=== PATIENT | male | born 1940 | race Caucasian/White ===

== ENCOUNTER → 2017-06-11 08:33 | Outpatient (CLI) | payer MEDICARE, SELFPAY ==
[2017-06-11 09:07] LABS: AST(SGOT) 13 U/L (15-37); Alanine Aminotransfer ALT/SGPT 28 U/L (16-61); Albumin, Serum 3.9 g/dL (3.2-5.0); Alkaline Phosphatase 46 U/L (45-117); Bilirubin, Direct 0.17 mg/dL (0.00-0.30); Cholesterol 170 mg/dL (200); High Density Lipoprotein 64 mg/dL; Protein, Total 7.9 g/dL (6.4-8.2); Triglycerides 73 mg/dL; Very Low Density Lipoprotein 15 mg/dL (5-40)
== END ==
PROVIDERS: Physician Assistant Medical; Family Provider Family Medicine; PCP Family Medicine; Visit Provider Internal Medicine Cardiovascular Disease
DX: E78.5 Hyperlipidemia, unspecified (principal); I10 Essential (primary) hypertension; I25.10 Atherosclerotic heart disease of native coronary artery without angina pectoris; Z79.899 Other long term (current) drug therapy
CPT/HCPCS: 36415; 80061; 80076

== ENCOUNTER → 2018-07-21 10:22 | Outpatient (CLI) | payer MEDICARE, SELFPAY ==
[2017-06-11 09:37] VITALS: BMI 27.0
[2018-07-21 11:14] LABS: AST(SGOT) 14 U/L (15-37); Alanine Aminotransfer ALT/SGPT 25 U/L (16-61); Albumin, Serum 3.9 g/dL (3.2-5.0); Alkaline Phosphatase 52 U/L (45-117); Bilirubin, Direct 0.15 mg/dL (0.00-0.30); Cholesterol 158 mg/dL (200); High Density Lipoprotein 64 mg/dL; Protein, Total 7.9 g/dL (6.4-8.2); Triglycerides 73 mg/dL; Very Low Density Lipoprotein 15 mg/dL (5-40)
== END ==
PROVIDERS: Family Provider Family Medicine; PCP Family Medicine; Referring Provider Internal Medicine Cardiovascular Disease; Visit Provider Internal Medicine Cardiovascular Disease
DX: I10 Essential (primary) hypertension (principal); E78.5 Hyperlipidemia, unspecified; Z79.899 Other long term (current) drug therapy
CPT/HCPCS: 36415; 80061; 80076

== ENCOUNTER 2018-10-07 10:37 | Emergency (ER) | payer MEDICARE, SELFPAY ==
[2018-07-23 10:15] VITALS: BMI 26.7
[2018-10-07 10:38] VITALS: BP 134/62; PULSE 67; RESP 18; TEMP 36.6; O2SAT 98; BMI 26.4
--- NOTE | 2018-10-07 11:08 | ED.VIS.GEN ---
History of Present Illness Chief Complaint: Laceration Informant: Patient Onset: Today Current Severity: Mild Narrative: The patient presents with a laceration to the mid forehead he indicates he was working trying to get an object on his pickup truck when there was movement of this object and it caused him to to jerk and he was struck in the head, he had no LOC he has no change in vision no numbness weeks paresthesias no other complaints he does have a history of using Plavix for cardiovascular reasons his general health is been good he indicates he feels fine except for the laceration his tetanus status is up-to-date Past Medical History - Allergies and Home Meds Allergies/Adverse Reactions: Allergies atorvastatin [From Lipitor] Adverse Reaction (Verified 10/07/18 10:41) myalgias simvastatin Adverse Reaction (Verified 10/07/18 10:41) myalgias Primary Care Physician: Reid Blake MD [Primary Care Provider] - Past Medical History: - - Cardiovascular disorder see above Smoking Status: Never smoker Review of Systems General: Reports: - - His only complaint is a vertical laceration very superficial well approximated to the mid forearm forehead no neurologic complaints no headache no numbness weeks paresthesias no neck pain. Denies: Chills, Fever, Sweats Eyes: Denies: Visual changes - bilaterally, Diplopia ENT: Denies: Rhinorrhea, Sore throat Cardiovascular: Denies: Chest pain, Palpitations Respiratory: Denies: Dyspnea, Cough, Dyspnea on exertion Gastrointestinal: Denies: Abdominal pain, Nausea, Vomiting, Diarrhea, Melena, Hematochezia Genitourinary: Denies: Dysuria, Hematuria, Frequency Musculoskeletal: Denies: Back pain, Extremity Pain Skin: Denies: Rash, Wounds Neurological: Denies: Headache, Weakness, Numbness Physical Exam Vital Signs/Narrative: Vital Signs Temp Pulse Resp BP Pulse Ox 10/07/18 10:38 97.8 F 67 18 134/62 H 98 General: Well nourished, Well developed, No Acute Distress Head: Normocephalic, Atraumatic, - - He has about a 3 cm Giovana very linear very midline well approximated laceration to the mid forehead his pupils were equal reactive the neck mouth ears eyes cranial nerve exam neurologic exam general medical exam are all unremarkable NIH is 0 Eyes: Perrl, EOMI ENT: Moist mucous membranes, No rhinorrhea Neck: Supple, Nontender Cardiovascular: Regular rate, Regular rhythm, No murmurs Respiratory: No distress, CTA bilaterally, Chest nontender Abdomen: Soft, Nontender, Nondistended, Normal bowel sounds Back: Nontender, Normal Inspection Extremities: Nontender, No edema Skin: Normal color, No rash Neurological: Alert, Oriented x3, Cranial nerves II-XII grossly intact, Normal Strength, Normal Sensation Psychological: Normal affect, Normal Mood Diagnostic/Tx/Re-eval - Medical Decision Making All the above with the patient we discussed CT scan he declined that he states he feels fine he does not have a headache he has no neurologic complaints or issues is been over an hour since this occurred, we did sterilely prepped the area we discussed wound closure management options he agreed with glue we used a medical glue to close the wound with good results he was instructed on wound care and follow-up with his physicians also follow head injury instruction sheet Home stable Final impression 3 cm vertical forehead laceration closed with medical glue ED Disposition - Plan for ED Patient: Diagnosis: Forehead laceration Instructions: LACERATION, Face (Skin Glue), HEAD INJURY, No Wake-Up (Adult) Referrals: Reid Blake MD [Primary Care Provider] -
== END 2018-10-07 11:13 | disposition home or self-care (01) ==
PROVIDERS: Emergency Provider Emergency Medicine; Family Provider Family Medicine; PCP Family Medicine
DX: S01.81XA Laceration without foreign body of other part of head, initial encounter (principal); W22.8XXA Striking against or struck by other objects, initial encounter; Y93.9 Activity, unspecified; Y92.9 Unspecified place or not applicable; Y99.9 Unspecified external cause status; Z79.02 Long term (current) use of antithrombotics/antiplatelets; Z79.82 Long term (current) use of aspirin; Z79.899 Other long term (current) drug therapy
CPT/HCPCS: 12013; 99282

== ENCOUNTER → 2018-12-21 16:18 | Outpatient (CLI) | payer MEDICARE, SELFPAY ==
--- NOTE | 2018-12-21 16:32 | RAD_ITS ---
STUDY: X-RAY - RIGHT SHOULDER REASON FOR EXAM: Male, 78 years old. Pain TECHNIQUE: 3 view(s) of the shoulder. COMPARISON: None. FINDINGS: No acute fracture, dislocation or osseous destruction. Moderate arthrosis is noted at the right glenohumeral joint and AC joint. No significant soft tissue swelling. The visualized lungs are clear. IMPRESSION: No acute osseous abnormality is identified. Electronically Signed: Lyle Matos, at 17:52 EST Tel , Service support , RAD/Shoulder min 2 Views
[2018-12-21 17:16] LABS: Absolute Lymphocyte Count 1.98 X10^3/uL (0.83-4.51); Absolute Neutrophil Count 4.5 X10^3/uL (2.0-7.7); Basophil# 0.03 X10^3/uL; Basophil% 0.4 % (0-1); Eosinophil# 0.23 X10^3/uL; Eosinophils% 3.2 % (0-5); Hematocrit 43.1 % (40-54); Hemoglobin 14.2 g/dL (13.0-16.5); Lymphocyte # 1.98 X10^3/ul (4.0); Lymphocyte % 27.4 % (19-41); Mean Corp Hgb Conc 32.9 g/dL (32-36); Mean Corpuscular Hgb 31.3 pg (27.0-32.0); Mean Corpuscular Volume 94.9 fL (80-94); Mean Platelet Vol. 10.3 fl (6.2-12.0); Monocyte# 0.47 X10^3/uL; Monocyte% 6.5 % (0-10); NRBC Flagged by Analyzer 0 % (0-5); Neutrophil % 62.2 % (47-70); Platelet Count 228 K/mm3 (150-450); RBC Distribution Width CV 12.5 % (11.6-14.6); RBC Distribution Width SD 43.7 fl (35.1-43.9); Red Blood Count 4.54 M/mm3 (4.6-6.2); White Blood Count 7.2 K/mm3 (4.4-11.0)
[2018-12-21 17:54] LABS: AST(SGOT) 21 U/L (15-37); Alanine Aminotransfer ALT/SGPT 33 U/L (16-61); Albumin, Serum 3.8 g/dL (3.2-5.0); Alkaline Phosphatase 46 U/L (45-117); Anion Gap 10 (5-15); BUN 20 mg/dL (7-18); BUN/Creat Ratio 19.4 RATIO (10-20); Calcium,Total 8.8 mg/dL (8.5-10.1); Chloride 103 mmol/L (98-107); Cholesterol 170 mg/dL (200); Creatinine, Serum 1.03 mg/dL (0.70-1.30); EST Glomerular Filtration Rate 75 mL/min (>60); Est Glom Filt Rate - Afr Amer 90 mL/min (>60); Globulin 3.8 g/dL (2.2-4.2); Glucose 218 mg/dL (74-106); High Density Lipoprotein 61 mg/dL; Potassium 4.1 mmol/L (3.5-5.1); Protein, Total 7.6 g/dL (6.4-8.2); Sodium Level 138 mmol/L (136-145); Thyroid Stim Hormone (TSH) 0.88 uIU/mL (0.358-3.74); Triglycerides 212 mg/dL; Very Low Density Lipoprotein 42 mg/dL (5-40)
== END ==
PROVIDERS: Family Provider Family Medicine Geriatric Medicine; PCP Family Medicine Geriatric Medicine; Referring Provider Family Medicine Geriatric Medicine; Visit Provider Family Medicine Geriatric Medicine
DX: I10 Essential (primary) hypertension (principal); E78.5 Hyperlipidemia, unspecified; M25.519 Pain in unspecified shoulder
CPT/HCPCS: 36415; 73030; 80053; 80061; 84443; 85025

== ENCOUNTER → 2019-07-25 08:18 | Outpatient (CLI) | payer MEDICARE, SELFPAY ==
[2019-07-25 09:46] LABS: AST(SGOT) 16 U/L (15-37); Alanine Aminotransfer ALT/SGPT 27 U/L (16-61); Albumin, Serum 3.7 g/dL (3.2-5.0); Alkaline Phosphatase 49 U/L (45-117); Cholesterol 167 mg/dL (200); Globulin 3.7 g/dL (2.2-4.2); High Density Lipoprotein 57 mg/dL; Protein, Total 7.4 g/dL (6.4-8.2); Triglycerides 99 mg/dL; Very Low Density Lipoprotein 20 mg/dL (5-40)
== END ==
PROVIDERS: PCP Family Medicine Geriatric Medicine; Referring Provider Internal Medicine Cardiovascular Disease; Visit Provider Internal Medicine Cardiovascular Disease
DX: E78.5 Hyperlipidemia, unspecified (principal)
CPT/HCPCS: 36415; 80061; 80076

== ENCOUNTER → 2019-12-27 11:46 | Outpatient (CLI) | payer MEDICARE, SELFPAY ==
[2019-07-26 09:28] VITALS: BMI 26.0
[2019-12-27 12:54] LABS: Vitamin D,25 Hydroxy 23.4 ng/mL
[2019-12-27 13:03] LABS: AST(SGOT) 16 U/L (15-37); Alanine Aminotransfer ALT/SGPT 32 U/L (16-61); Albumin, Serum 3.8 g/dL (3.2-5.0); Alkaline Phosphatase 55 U/L (45-117); Anion Gap 7 (5-15); BUN 26 mg/dL (7-18); BUN/Creat Ratio 23.4 RATIO (10-20); Calcium,Total 9.1 mg/dL (8.5-10.1); Chloride 100 mmol/L (98-107); Cholesterol 178 mg/dL (200); Creatinine, Serum 1.11 mg/dL (0.70-1.30); EST Glomerular Filtration Rate 68 mL/min (>60); Est Glom Filt Rate - Afr Amer 83 mL/min (>60); Globulin 3.9 g/dL (2.2-4.2); Glucose 252 mg/dL (74-106); High Density Lipoprotein 63 mg/dL; Potassium 4.2 mmol/L (3.5-5.1); Protein, Total 7.7 g/dL (6.4-8.2); Sodium Level 135 mmol/L (136-145); Thyroid Stim Hormone (TSH) 0.78 uIU/mL (0.358-3.74); Triglycerides 130 mg/dL; Very Low Density Lipoprotein 26 mg/dL (5-40)
[2019-12-27 13:54] LABS: Absolute Lymphocyte Count 1.88 X10^3/uL (0.83-4.51); Absolute Neutrophil Count 4.2 X10^3/uL (2.0-7.7); Basophil# 0.02 X10^3/uL; Basophil% 0.3 % (0-1); Eosinophil# 0.13 X10^3/uL; Hematocrit 45.6 % (40-54); Hemoglobin 14.9 g/dL (13.0-16.5); Lymphocyte # 1.88 X10^3/ul (4.0); Lymphocyte % 28.3 % (19-41); Mean Corp Hgb Conc 32.7 g/dL (32-36); Mean Corpuscular Hgb 31.1 pg (27.0-32.0); Mean Corpuscular Volume 95.2 fL (80-94); Mean Platelet Vol. 10.6 fl (6.2-12.0); Monocyte# 0.41 X10^3/uL; Monocyte% 6.2 % (0-10); NRBC Flagged by Analyzer 0 % (0-5); Neutrophil # 4.18 X10^3/uL (2.7-7.7); Neutrophil % 62.9 % (47-70); Platelet Count 244 K/mm3 (150-450); RBC Distribution Width CV 12.5 % (11.6-14.6); RBC Distribution Width SD 44.5 fl (35.1-43.9); Red Blood Count 4.79 M/mm3 (4.6-6.2); White Blood Count 6.6 K/mm3 (4.4-11.0)
[2019-12-27 15:18] LABS: Hemoglobin A1c 9.8 % (3.8-5.6)
== END ==
PROVIDERS: PCP Family Medicine Geriatric Medicine; Visit Provider Family Medicine Geriatric Medicine
DX: E55.9 Vitamin D deficiency, unspecified (principal); E78.5 Hyperlipidemia, unspecified; I10 Essential (primary) hypertension; E11.9 Type 2 diabetes mellitus without complications
CPT/HCPCS: 36415; 80053; 80061; 82306; 83036; 84443; 85025

== ENCOUNTER → 2020-07-25 08:49 | Outpatient (CLI) | payer MEDICARE, SELFPAY ==
[2019-07-26 09:28] VITALS: BMI 26.0
[2020-07-25 10:07] LABS: AST(SGOT) 17 U/L (15-37); Alanine Aminotransfer ALT/SGPT 26 U/L (16-61); Albumin, Serum 3.7 g/dL (3.2-5.0); Alkaline Phosphatase 54 U/L (45-117); Bilirubin, Direct 0.16 mg/dL (0.00-0.30); Cholesterol 214 mg/dL (200); Globulin 3.9 g/dL (2.2-4.2); High Density Lipoprotein 65 mg/dL; Protein, Total 7.6 g/dL (6.4-8.2); Triglycerides 92 mg/dL; Very Low Density Lipoprotein 18 mg/dL (5-40)
== END ==
PROVIDERS: Referring Provider Internal Medicine Cardiovascular Disease; Visit Provider Internal Medicine Cardiovascular Disease
DX: E78.5 Hyperlipidemia, unspecified (principal); E78.00 Pure hypercholesterolemia, unspecified
CPT/HCPCS: 36415; 80061; 80076

== ENCOUNTER → 2021-01-11 08:57 | Outpatient (CLI) | payer MEDICARE, SELFPAY ==
[2021-01-11 10:32] LABS: AST(SGOT) 17 U/L (15-37); Alanine Aminotransfer ALT/SGPT 25 U/L (16-61); Albumin, Serum 3.6 g/dL (3.2-5.0); Alkaline Phosphatase 54 U/L (45-117); Bilirubin, Direct 0.15 mg/dL (0.00-0.30); Cholesterol 215 mg/dL (200); Globulin 4.1 g/dL (2.2-4.2); High Density Lipoprotein 65 mg/dL; Protein, Total 7.7 g/dL (6.4-8.2); Triglycerides 85 mg/dL; Very Low Density Lipoprotein 17 mg/dL (5-40)
== END ==
PROVIDERS: Referring Provider Internal Medicine Cardiovascular Disease; Visit Provider Internal Medicine Cardiovascular Disease
DX: E78.00 Pure hypercholesterolemia, unspecified (principal)
CPT/HCPCS: 36415; 80061; 80076

== ENCOUNTER → 2021-06-18 | Outpatient (CLI) | payer MEDICARE, SELFPAY ==
--- NOTE | 2021-06-18 13:15 | RAD_ITS ---
EXAM: XR CERVICAL SPINE, 2 OR 3 VIEWS CLINICAL INDICATION: neck injury with worsening pain TECHNIQUE: Frontal and lateral views of the cervical spine. This report was created using [email or web address] report generation technology. COMPARISON: None. FINDINGS: VERTEBRAE: No acute or healing fracture or malalignment. Nuchal ligamentous ossification measuring 1.6 cm is located at the C6 level. No spondylolisthesis. Preservation of the normal cervical lordosis. No significant facet arthropathy. DISC SPACES: Multilevel spine degenerative changes which are worse at the lower levels of the cervical spine. SOFT TISSUES: Soft tissues are normal. No prevertebral soft tissue widening. LUNG APICES: Clear. RAD/Cerv Spine 2 or 3 Views IMPRESSION: Degenerative changes of the spine without acute or healing fracture or malalignment. Electronically Signed: Brandon Thornton MD at 21:10 EDT ,
== END | disposition home or self-care (01) ==
LOC: MTRAD 13:15
PROVIDERS: PCP Registered Nurse; Referring Provider Registered Nurse; Visit Provider Registered Nurse
DX: M54.2 Cervicalgia (principal)
CPT/HCPCS: 72040

== ENCOUNTER 2021-08-07 15:00 | Outpatient (RCR) | payer MEDICARE, SELFPAY ==
--- NOTE | 2021-06-24 16:10 | HP.PTEVAL_ITS ---
Patient's Visit Information CELI NOBLE is a 81 year old M referred to Physical Therapy by ARISTEO Perez with a diagnosis of ACUTE NECK PAIN. Date of Evaluation: 06/24/21 Physical Therapist: Celi Johnson, PT, Cert MDT, OCS - Visit Plan Frequency: 2x /Week Duration: 4 Weeks Plan: PT INTERVETIONS US/CP,GRADED CERVICAL ROM ,POSTURAL EX'S ,AND STRENGTHENING - Subjective This 81 y/o male presents to physical therapy acute neck pain. Patient hit top of head overhead cabinet ,then about 4 days later developed pain in cervical region and left side of head . Patient seen DR and did x-rays -,recommended PT and just taking over counter medication. Pain located base occiput. Aggravating turning neck to left ,looking forward . driving, Alleviating factors teylonal ,ice. Patient is sleeping okay . Denies AUGUSTIN /dizziness/nausea/. Patient denies paresthesia/tingling. Patient pain affect function and ADLS'. Patient does work in realtor. SOCIAL: . VOCATION: Realtor - Pain Left Neck Pain Intensity (Out of 10): 4 - Objective POSTURE: rounded shoulders head forward. NEURO: denies paresthesia/tingling, reflexes C5-6-7 1/3. AROM: BUE shoulder flexion ~ 130 degrees. MMT: Grossly 4- /5 ,except shoulders 3+/5. PALAPTION: unremarkable. CERVICAL ROM: flexion min loss ,extension severe loss ,lateral flexion left severe loss, right mod loss , flexion min loss - Special Tests C/S Radiculapathy - Left Upper limb tension test: Negative C/S Radiculapathy - Right Upper limb tension test: Negative C/S Radiculapathy - Left Spurlings: Positive C/S Radiculapathy - Right Spurlings: Negative C/S Radiculapathy - Left Cervical distraction: Negative C/S Radiculapathy - Right Cervical distraction: Negative C/S Radiculapathy - Left Relief test: Negative C/S Radiculapathy - Right Relief test: Negative Sharp Pee: Negative Vertebral Artery Test: Negative Alar Ligament Test: Negative - Balance/Special Test Scores Oswestry Neck Score: 22 - Goals Goal 1:: Patient to be I with HEP for posture Goal Time Frame: 4-6 Weeks Goal 2:: Patient to demonstrate 50% improvement with improved function and ADL's to decrease pain Goal Time Frame: 4-6 Weeks Goal 3:: Patient to improve cervical ROM for function to turn to neck improve driving. Goal Time Frame: 4-6 Weeks Goal 4:: Patient to improve neck oswestry score by 5 points to improve function and QOL Goal Time Frame: 4-6 Weeks Goal 5:: Patient to return to prior level of function and ADL's with min limitation with decrease left occiput pain - Rehabilitation Potential Physical Therapy Diagnosis: This patient has left occiput pain from hitting head on cabinet causing pain ,poor ROM to left along with positioning , impairs ADL's and housework tasks thus will benefit from skilled PT Rehabilitation Potential: Good - Anticipated Interventions Patient/Client Instruction: Educate patient on: Condition, Plan of Care For the Purpose of:: To decrease pain, To increase ROM, To improve muscle performance and motor function, To improve ability to perform ADL's, To increase tolerance to activity/condition/position, To improve ability of physical actions for home/community/work/leisure, To improve health of tissue, To decrease soft tissue restriction, To increase flexibility/ROM, To assume or resume ADL's, To prevent re-injury, To improve tolerance to ADL's Therapeutic Exercise to Include: Strength training, Postural training, Flexibilty training, Active ROM For the Purpose of:: To decrease pain, To increase ROM, To improve muscle performance and motor function, To improve ability to perform ADL's, To improve ability of physical actions for home/community/work/leisure, To improve health of tissue, To decrease soft tissue restriction, To increase flexibility/ROM, To prevent re-injury, To improve tolerance to ADL's TENS: Yes IF ES: Yes Cryotherapy (ice pack, ice massage): Yes Thermo therapy (hot pack): Yes Ultrasound (thermal/non thermal): Yes For the Purpose of:: To decrease pain, To increase ROM, To improve nutrient delivery to tissue, To increase oxygenation perfusion, To improve health of tissue, To decrease soft tissue restriction Thank you for the opportunity to evaluate your patient. For Medicare and Medicare HMO plans, please review the plan of care and approve it. It will need to be FAXED BACK to us at [phone] for Medicare purposes. For Medicare only, by signing this I certify the plan of care. Please let me know if there are questions or concerns regarding this plan of care. Physician Signature: Date:
--- NOTE | 2021-08-07 15:30 | HP.PTDCSUM ---
It has been my pleasure to treat CELI NOBLE referred by ARISTEO Perez, with the diagnosis of ACUTE NECK PAIN for a total of 9 visit(s). Discharge Date: 08/07/21 Please see the following information for a summary of their discharge status. Subjective: Doing alot better.. Left Neck Pain Intensity (Out of 10): 1 % Improvement: 85 Objective/Function: CERVICAL ROM: flexion min loss ,lateral flexion mod/sever loss, rotation mod loss. MMT: BUE 4/5 ,shoulder 4-/5 Goal 1:: Patient to be I with HEP for posture Goal Progress: Goal Met Goal 2:: Patient to demonstrate 50% improvement with improved function and ADL's to decrease pain Goal Progress: Goal Met Goal 3:: Patient to improve cervical ROM for function to turn to neck improve driving. Goal Progress: Goal Met Goal 4:: Patient to improve neck oswestry score by 5 points to improve function and QOL Goal Progress: Goal Met Goal 5:: Patient to return to prior level of function and ADL's with min limitation with decrease left occiput pain Goal Progress: Goal Met Plan: D/C If there are questions or concerns regarding this patient's physical therapy, please feel free to call me at [phone]. Thank you for the referral of this patient. Sincerely, Celi Johnson, PT, Cert MDT, OCS Balance/Gait/Functional tests - Balance/Special Test Scores Oswestry Neck Score: 6
== END 2021-08-07 19:00 | disposition home or self-care (01) ==
LOC: PT 15:00
PROVIDERS: PCP Registered Nurse; Referring Provider Registered Nurse; Visit Provider Registered Nurse
DX: M54.2 Cervicalgia (principal)
CPT/HCPCS: 97035; 97110; 97162

== ENCOUNTER → 2021-08-26 | Outpatient (CLI) | payer MEDICARE, SELFPAY ==
[2021-08-26 11:12] LABS: AST(SGOT) 15 U/L (15-37); Alanine Aminotransfer ALT/SGPT 26 U/L (16-61); Albumin, Serum 3.8 g/dL (3.2-5.0); Alkaline Phosphatase 55 U/L (45-117); Cholesterol 204 mg/dL (200); High Density Lipoprotein 62 mg/dL; Protein, Total 7.8 g/dL (6.4-8.2); Triglycerides 151 mg/dL; Very Low Density Lipoprotein 30 mg/dL (5-40)
== END | disposition home or self-care (01) ==
LOC: LAB 08:38
PROVIDERS: PCP Registered Nurse; Referring Provider Internal Medicine Cardiovascular Disease; Visit Provider Internal Medicine Cardiovascular Disease
DX: E78.00 Pure hypercholesterolemia, unspecified (principal)
CPT/HCPCS: 36415; 80061; 80076

== ENCOUNTER → 2022-09-01 | Outpatient (CLI) | payer MEDICARE, SELFPAY ==
[2022-09-01 09:23] LABS: AST(SGOT) 12 U/L (15-37); Alanine Aminotransfer ALT/SGPT 24 U/L (16-61); Albumin, Serum 3.7 g/dL (3.2-5.0); Alkaline Phosphatase 56 U/L (45-117); Bilirubin, Direct 0.17 mg/dL (0.00-0.30); Cholesterol 190 mg/dL (200); Globulin 3.8 g/dL (2.2-4.2); High Density Lipoprotein 62 mg/dL; Protein, Total 7.5 g/dL (6.4-8.2); Triglycerides 100 mg/dL; Very Low Density Lipoprotein 20 mg/dL (5-40)
== END | disposition home or self-care (01) ==
PROVIDERS: PCP Registered Nurse; Referring Provider Internal Medicine Cardiovascular Disease; Visit Provider Internal Medicine Cardiovascular Disease
DX: E78.00 Pure hypercholesterolemia, unspecified (principal)
CPT/HCPCS: 80061; 80076

== ENCOUNTER → 2022-09-15 | Outpatient (CLI) | payer MEDICARE, SELFPAY ==
--- NOTE | 2022-09-15 10:53 | CDU_ITS ---
Reason For Study: BRUIT Rt. Velocities/BP Lt. Velocities/BP Prox CCA 89.3/11.3 cm/sec. Prox CCA 147.1/12.0 cm/sec. Mid CCA 98.1/15.7 cm/sec. Mid CCA 127.1/13.9 cm/sec. Dist CCA 121.6/17.5 cm/sec. Dist CCA 105.2/15.7 cm/sec. Prox ICA 78.3/19.9 cm/sec. Prox ICA 92.8/17.9 cm/sec. Mid ICA 92.0/22.0 cm/sec. Mid ICA 79.3/14.2 cm/sec. Dist ICA 94.0/21.6 cm/sec. Dist ICA 87.9/16.7 cm/sec. Rt. ICA/CCA = 94.0/98.1=0.96. Lt. ICA/CCA = 92.8/127.1=0.73. Prox ECA 130.7/12.0 cm/sec. Prox ECA 110.0/9.3 cm/sec. Rt. Vert. 69.8/12.2 cm/sec. Lt. Vert. 65.8/0.5 cm/sec. Right Extracranial There is intimal thickening but no significant atherosclerotic plaque noted in the right common carotid artery. There is intimal thickening but no significant atherosclerotic plaque noted in the right internal carotid artery. There is no significant atherosclerotic plaque noted in the right external carotid artery. Antegrade flow is noted in the right vertebral artery. Left Extracranial There is homogeneous, smooth atherosclerotic plaque noted in the left common carotid artery. There is homogeneous, smooth atherosclerotic plaque noted in the left internal carotid artery. There is intimal thickening but no significant atherosclerotic plaque noted in the left external carotid artery. Antegrade flow is noted in the left vertebral artery. VL/Carotid Duplex Ultrasound Interpretation Summary Normal right extracranial internal carotid. Mild (<50%) stenosis left extracranial internal carotid. Patent and antegrade vertebrals bilaterally Ordering Physician: Flash Dey Referring Physician: Shruthi Fernandez Performed By: Amy Albert, LUCIEN, RVT
== END | disposition home or self-care (01) ==
LOC: CVS 10:52
PROVIDERS: PCP Registered Nurse; Referring Provider Internal Medicine Cardiovascular Disease; Visit Provider Internal Medicine Cardiovascular Disease
DX: R09.89 Other specified symptoms and signs involving the circulatory and respiratory systems (principal)
CPT/HCPCS: 93880

== ENCOUNTER → 2022-10-15 | Outpatient (CLI) | payer MEDICARE, SELFPAY ==
--- NOTE | 2022-10-15 11:49 | ECHOD_ITS ---
Reason For Study: ashd Procedure This was a 2D Doppler, Color Flow transthoracic echocardiogram. The study was technically difficult. Exam performed in department. Left Ventricle Normal LV size. Left ventricular systolic function is normal. The estimated ejection fraction is 65 %. Stage 1 diastolic dysfunction. No regional wall motion abnormalities noted. Right Ventricle Normal RV size. Normal systolic function. Atria Normal left atrium. Normal right atrium. Mitral Valve Normal mitral valve. Tricuspid Valve Normal tricuspid valve. Aortic Valve Normal aortic valve. Pulmonic Valve Normal pulmonic valve. Great Vessels Normal aortic root. The pulmonary artery is normal size. Normal inferior vena cava. Pericardium/Pleural No pericardial effusion. MMode/2D Measurements & Calculations RVDd: 3.5 cm Ao root diam: 2.7 cm LAV(MOD-bp): 36.0 ml LAV(MOD-bp) Indexed: 17.6 ml/m2 LAV(MOD-sp2): 38.5 ml LAV(MOD-sp4): 33.0 ml SV(MOD-sp4): 42.3 ml LVAd ap4: 28.1 cm2 LVAd ap2: 27.0 cm2 LVLd ap4: 8.3 cm LVLd ap2: 8.3 cm EDV(MOD-sp4): 77.5 ml EDV(MOD-sp2): 73.2 ml EDV(sp4-el): 80.4 ml EDV(sp2-el): 74.5 ml LVAs ap4: 17.1 cm2 LVAs ap2: 16.9 cm2 LVLs ap4: 7.4 cm LVLs ap2: 7.5 cm ESV(MOD-sp4): 35.1 ml ESV(MOD-sp2): 31.5 ml ESV(sp4-el): 33.5 ml ESV(sp2-el): 32.5 ml EF(MOD-sp4): 54.7 % EF(MOD-sp2): 56.9 % EF(sp4-el): 58.4 % SV(MOD-sp2): 41.7 ml SV(sp4-el): 46.9 ml LA A4 area: 12.9 cm2 LA dimension(2D): 3.9 cm RA A4 area: 11.9 cm2 Time Measurements MV dec time: 0.32 sec Doppler Measurements & Calculations MV E max willy: 37.5 cm/sec Lat Peak E' Willy: 7.5 cm/sec Med Peak E' Willy: 7.9 cm/sec MV A max willy: 79.1 cm/sec E/E' lat: 5.0 E/E' med: 4.8 MV E/A: 0.47 MV V2 max: 101.3 cm/sec Ao V2 max: 95.5 cm/sec LV V1 max: 84.7 cm/sec MV max P.1 mmHg Ao max P.6 mmHg LV V1 max P.9 mmHg MV V2 mean: 42.9 cm/sec Ao V2 mean: 71.4 cm/sec LV V1 mean P.8 mmHg MV mean P.95 mmHg Ao mean P.3 mmHg LV V1 mean: 64.6 cm/sec MV V2 VTI: 22.7 cm Ao V2 VTI: 23.4 cm LV V1 VTI: 19.7 cm AV (velocity ratio): 0.84 PA V2 max: 80.9 cm/sec ECHO/Echo Complete Interpretation Summary Normal LV size. Left ventricular systolic function is normal. The estimated ejection fraction is 65 %. Stage 1 diastolic dysfunction. Ordering Physician: Flash Dey Referring Physician: Shruthi Fernandez Performed By: Amy Albert, RDJAYLA, RVT
== END | disposition home or self-care (01) ==
PROVIDERS: PCP Registered Nurse; Referring Provider Internal Medicine Cardiovascular Disease; Visit Provider Internal Medicine Cardiovascular Disease
DX: I25.10 Atherosclerotic heart disease of native coronary artery without angina pectoris (principal)
CPT/HCPCS: 93306

== ENCOUNTER → 2023-12-10 | Outpatient (CLI) | payer MEDICARE, SELFPAY ==
[2023-12-10 11:21] LABS: AST(SGOT) 13 U/L (15-37); Alanine Aminotransfer ALT/SGPT 23 U/L (16-61); Albumin, Serum 3.8 g/dL (3.2-5.0); Alkaline Phosphatase 52 U/L (45-117); Bilirubin, Direct 0.16 mg/dL (0.00-0.30); Cholesterol 219 mg/dL (200); High Density Lipoprotein 67 mg/dL; Protein, Total 7.8 g/dL (6.4-8.2); Triglycerides 110 mg/dL; Very Low Density Lipoprotein 22 mg/dL (5-40)
== END | disposition home or self-care (01) ==
LOC: LAB 09:54
PROVIDERS: PCP Registered Nurse; Referring Provider Nurse Practitioner Family; Visit Provider Nurse Practitioner Family
DX: E78.00 Pure hypercholesterolemia, unspecified (principal)
CPT/HCPCS: 36415; 80061; 80076